=== PATIENT | male | born 1975 | race Caucasian/White ===

== ENCOUNTER 2021-05-26 14:24 | Emergency (ER) | payer BC ==
[~2021-05-26] VITALS: Ht 180 cm; Wt 102.3 kg
[2021-05-26 14:49] VITALS: BP 174/110
== END 2021-05-26 15:00 | disposition left against medical advice (07) ==
LOC: EDUNIT# 14:24 → ER 14:25
DX: T18.120A Food in esophagus causing compression of trachea, initial encounter (principal)